=== PATIENT | female | born 1950 | race Hispanic/Latino ===

== ENCOUNTER 2017-04-13 08:33 | Day surgery (SDC) | payer MEDICARE, BC ==
--- NOTE | 2017-04-13 11:58 | Short Stay Summary ---
Short Stay Documentation Date of service: 04/13/17 - History Principal diagnosis: left thyroid nodule H&P: obtained from office - Allergies and Medications Current Medications: Allergies hydromorphone HCl [From Dilaudid] Allergy (Unverified 04/13/17 08:34) Rash bacitracin [From Polysporin] Adverse Reaction (Verified 05/30/14 12:14) Unknown codeine Adverse Reaction (Verified 05/30/14 12:13) Unknown polymyxin B sulfate [From Polysporin] Adverse Reaction (Verified 05/30/14 12:14) Unknown Home Medications Medication Instructions Recorded Confirmed Last Taken Type ALPRAZolam [Alprazolam] 0.5 mg PO PRN PRN 04/13/17 04/13/17 04/13/17 07:00 History Faslodex (Nf) 1 ampul IM QMONTH 04/13/17 04/13/17 04/12/17 History Ibuprofen [Motrin] 400 mg PO Q8H PRN 04/13/17 04/13/17 1 Month Ago History Triamterene/Hydrochlorothiazid 1 tab PO QDAY 04/13/17 04/13/17 04/13/17 07:00 History [Triamterene-Hctz 37.5-25 mg Tb] Verapamil HCl [Verapamil ER] 180 mg PO HS 04/13/17 04/13/17 04/12/17 History - Physical exam General appearance: no acute distress HEENT: Atraumatic, PERRLA, Mucous membr. moist/pink - Brief post op/procedure progress note Date of procedure: 04/13/17 Pre-op diagnosis: left thyroid nodule Post-op diagnosis: same Procedure: US thyroid biopsy Anesthesia: local Findings: 3cm left thyroid nodule Surgeon: TERESE ALBARRAN Estimated blood loss: none Pathology: list (FNA, rotex biopsy) Specimen disposition: to lab Condition: stable - Disposition Condition at discharge: Good Disposition: DISCHARGED TO HOME OR SELFCARE Short Stay Discharge Plan Follow up with: GRISELDA BYRNES MD [Primary Care Provider] - 7 Days
--- NOTE | 2017-04-13 12:11 | Ultrasound Report ---
ULTRASOUND BIOPSY THYROID HISTORY: Multinodular border, left thyroid lobe nodule DESCRIPTION OF PROCEDURE: Informed consent was obtained. Sterile technique was utilized. 1% lidocaine for skin anesthesia. Using ultrasound guidance, fine needle aspiration and rotex biopsy was performed on a 3.1 x 2.1 x 2.3 cm nodule in the inferior left thyroid lobe. The samples were deemed adequate by the pathologist on site. No complications. IMPRESSION: Successful ultrasound-guided biopsy of the dominant nodule at the inferior pole of the left thyroid lobe.
[2017-04-13 12:14] VITALS: BP 99/66
== END 2017-04-13 12:25 | disposition home or self-care (01) ==
LOC: OPU 08:33 → EDSTATUS 09:00 → OPU 12:25
PROVIDERS: ATTEND Specialist
DX: E04.2 Nontoxic multinodular goiter (principal)
CPT/HCPCS: 60100; 76942; 88112; 88172; 88173; 88305